=== PATIENT | male | born 1955 | race Caucasian/White ===

== ENCOUNTER 2020-09-19 10:00 | Outpatient (RCR) | payer MEDICARE, SELFPAY | END 2020-09-19 23:59 | disposition home or self-care (01) | LOC: CR 10:00 | PROVIDERS: PCP Family Medicine; Visit Provider Family Medicine | DX: Z95.2 Presence of prosthetic heart valve (principal); Z51.89 Encounter for other specified aftercare; Z98.890 Other specified postprocedural states; I10 Essential (primary) hypertension | CPT/HCPCS: S9472 ==

== ENCOUNTER 2020-10-17 10:00 | Outpatient (RCR) | payer MEDICARE, SELFPAY | END 2020-10-20 23:59 | disposition home or self-care (01) | LOC: CR 10:00 | PROVIDERS: PCP Family Medicine; Visit Provider Family Medicine | DX: Z51.89 Encounter for other specified aftercare (principal); Z95.2 Presence of prosthetic heart valve | CPT/HCPCS: S9472 ==